=== PATIENT | female | born 1985 | race Caucasian/White ===

== ENCOUNTER 2019-12-21 09:18 | Observation (INO) | payer MEDICAID ==
[~2019-12-21] VITALS: Ht 152.4 cm; Wt 86.2 kg
[2019-12-21 10:12] LABS: CLARITY URINE CLEAR (CLEAR); COLOR URINE YELLOW (YELLOW); KETONES URINE NEGATIVE (NEGATIVE); LEUKOCYTE ESTERASE URINE 2+ (NEGATIVE); NITRITE URINE NEGATIVE (NEGATIVE); OCCULT BLOOD URINE NEGATIVE (NEGATIVE); PROTEIN URINE NEGATIVE (NEGATIVE); SPECIFIC GRAVITY URINE 1.014 (1.005-1.030); UROBILINOGEN URINE 0.2 E.U./dL (0.2-1.0)
[2019-12-21] MEDS ORDERED: LACTATED RINGERS 1,000 ML IV SCH (11:00)
[2019-12-21] MEDS ORDERED: PNV1TABL76 PO (11:36)
[2019-12-21] MEDS ORDERED: CEFAZOLIN 2,000 MG in DEXT 5% WATER 100 ML IV NR (12:00)
== END 2019-12-21 12:05 | disposition home or self-care (01) ==
LOC: 8 EST LDRP 09:18
PROVIDERS: ADMIT Specialist; ATTEND Specialist
DX: O36.8130 Decreased fetal movements, third trimester, not applicable or unspecified (principal); O26.893 Other specified pregnancy related conditions, third trimester; R10.30 Lower abdominal pain, unspecified; Z3A.37 37 weeks gestation of pregnancy
CPT/HCPCS: 76815; 76818; 81003; 87086; 96361; 96365; 99281; G0378; J0690; J7060; 96360; J7120

== ENCOUNTER 2019-12-28 09:03 | Observation (INO) | payer MEDICAID ==
[~2019-12-28 09:03] MED LIST: PNV1TABL76 PO
== END 2019-12-28 10:50 | disposition home or self-care (01) ==
LOC: 8 EST LDRP 09:03
PROVIDERS: ADMIT Specialist; ATTEND Specialist
DX: O62.9 Abnormality of forces of labor, unspecified (principal); Z3A.38 38 weeks gestation of pregnancy
CPT/HCPCS: 59025; 76815; 76818; 99281; G0378

== ENCOUNTER 2020-01-03 13:57 | Inpatient (IN) | payer MEDICAID ==
[~2020-01-03] VITALS: Ht 165.1 cm; Wt 86.2 kg
[2020-01-03] MEDS ORDERED: RHO(D) IMMUNE GLOBULIN 300 MCG/SYR IM ONE (16:30)
[2020-01-03] MEDS ORDERED: NALOXONE HCL 0.4 MG/ML 1ML VIAL IM PRN (16:30)
[2020-01-03] MEDS ORDERED: LIDOCAINE HCL 1% 20ML VIAL (Pyxis) INJ INFIL SCH (16:30)
[2020-01-03 16:47] LABS: CLARITY URINE CLEAR (CLEAR); COLOR URINE YELLOW (YELLOW); KETONES URINE NEGATIVE (NEGATIVE); LEUKOCYTE ESTERASE URINE TRACE (NEGATIVE); NITRITE URINE NEGATIVE (NEGATIVE); OCCULT BLOOD URINE 3+ (NEGATIVE); PH URINE 5.5 (4.5-8.0); PROTEIN URINE NEGATIVE (NEGATIVE); SPECIFIC GRAVITY URINE 1.011 (1.005-1.030); UROBILINOGEN URINE 0.2 E.U./dL (0.2-1.0)
[2020-01-03 16:56] LABS: BASOPHILS % 0.2 % (0.0-2.0); EOSINOPHILS % 0.6 % (0.0-5.0); HEMATOCRIT. 33.3 % (36.0-48.0); HEMOGLOBIN. 11.1 g/dL (12.0-16.0); LYMPHOCYTES % 25.5 % (20.0-50.0); MEAN CORPUSCULAR HEMOGLOBIN 28.8 pg (28.0-32.0); MEAN CORPUSCULAR VOLUME 86.1 fL (81.0-99.0); MEAN PLATELET VOLUME 9.1 fl (7.4-10.4); MONOCYTES % 8.5 % (2.0-8.0); NEUTROPHILS % 65.2 % (40.0-76.0); PLATELET 253 x1000/uL (130-400); RED BLOOD CELL COUNT 3.86 mill/uL (4.2-5.4); RED CELL DISTRIBUTION WIDTH 15.4 % (11.6-14.6)
[2020-01-03 17:02] LABS: INR 0.9; PARTIAL THROMBOPLASTIN TIME 26.2 sec (23.4-31.0); PROTHROMBIN TIME 9.4 sec (9.6-11.0)
[2020-01-03 17:07] LABS: *AMPHETAMINES SCREEN URINE NEGATIVE (NEGATIVE); *BARBITURATES SCREEN URINE NEGATIVE (NEGATIVE); *BENZODIAZEPINES SCREEN URINE NEGATIVE (NEGATIVE); *COCAINE SCREEN URINE NEGATIVE (NEGATIVE); METHADONE URINE SCREEN NEGATIVE (NEGATIVE)
[2020-01-03 17:08] LABS: CANNABINOID URINE SCREEN NEGATIVE (NEGATIVE); OPIATES URINE SCREEN NEGATIVE (NEGATIVE); PHENCYCLIDINE URINE SCREEN NEGATIVE (NEGATIVE)
[2020-01-03] MEDS: LACTATED RINGERS 1,000 ML IV SCH ×2 (17:19→23:03)
[2020-01-03 17:40] LABS: HEPATITIS B SURFACE ANTIGEN NEGATIVE
[2020-01-03] MEDS ORDERED: DINOPROSTONE 10MG VAGINAL INSERT VG NR (18:00)
[2020-01-03 20:54] LABS: CHLORIDE 109 mEq/L (98-107)
[2020-01-03] MEDS: BUTORPHANOL TARTRATE 2 MG/ML VIAL IV PRN (22:59)
[2020-01-04] MEDS: BUTORPHANOL TARTRATE 2 MG/ML VIAL IV PRN (06:08)
[2020-01-04] MEDS: DEXT 5%/LR + PITOCIN 20UNITS/L 1,000 ML IV SCH (07:39)
[2020-01-04] MEDS ORDERED: ROPIVACAINE HCL/PF 0.2% (2MG/ML) EPID 200ML EPI NR (10:00)
[2020-01-04] MEDS ORDERED: FENTANYL CITRATE/PF 50MCG/ML 2ML VIAL ONE ×2 (10:34→19:59)
[2020-01-04] MEDS: LACTATED RINGERS 1,000 ML IV SCH ×2 (12:24→20:45)
[2020-01-04] MEDS ORDERED: BUPIVACAINE HCL/PF 0.25% (2.5MG/ML) 10ML ONE (19:59)
[2020-01-05] MEDS: LACTATED RINGERS 1,000 ML IV SCH (02:00)
[2020-01-05] MEDS ORDERED: BUPIVACAINE HCL/PF 0.25% (2.5MG/ML) 10ML ONE ×2 (02:12→06:44)
[2020-01-05] MEDS ORDERED: FENTANYL CITRATE/PF 50MCG/ML 2ML VIAL ONE ×2 (02:12→06:44)
[2020-01-05] MEDS ORDERED: BUTORPHANOL TARTRATE 2 MG/ML VIAL IV PRN (06:30)
[2020-01-05] MEDS: DEXT 5%/LR + PITOCIN 20UNITS/L 1,000 ML IV SCH (06:36)
[2020-01-05] MEDS ORDERED: NALOXONE HCL 0.4 MG/ML 1ML VIAL IM PRN (06:45)
[2020-01-05] MEDS ORDERED: MINERAL OIL 30ML BOTTLE PO NR (08:48)
[2020-01-05] MEDS ORDERED: DEXT 5%/LR + PITOCIN 20UNITS/L 1,000 ML IV SCH (09:13)
[2020-01-05] MEDS ORDERED: BISACODYL 10MG SUPP PR PRN (09:15)
[2020-01-05] MEDS ORDERED: ACETAMINOPHEN WITH CODEINE 300/30MG TABLET PO PRN (09:15)
[2020-01-05] MEDS ORDERED: GLYCERIN/WITCH HAZEL LEAF MEDICATED PAD TOP PRN (09:15)
[2020-01-05] MEDS ORDERED: LANOLIN OINT 7GM TUBE TOP PRN (09:15)
[2020-01-05] MEDS ORDERED: DIPHENHYDRAMINE 25MG CAPSULE PO PRN (09:15)
[2020-01-05] MEDS ORDERED: IBUPROFEN 400MG TABLET PO PRN (09:15)
[2020-01-05] MEDS ORDERED: HEMORRHOIDAL SUPP PR PRN (09:15)
[2020-01-05] MEDS: IBUPROFEN 800MG TABLET PO PRN (12:49)
[2020-01-05] MEDS ORDERED: PRAMOXINE HCL 1% FOAM PR SCH (13:00)
[2020-01-05 13:15] VITALS: BP 116/71
[2020-01-05 13:45] VITALS: BP 122/60
[2020-01-05] MEDS: BENZOCAINE/LANOLIN/ALOE VERA SPRAY TOP PRN ×2 (17:16→22:14)
[2020-01-05 19:30] VITALS: BP 124/53
[2020-01-05] MEDS ORDERED: DOCUSATE SODIUM 100MG CAPSULE PO SCH (21:00)
[2020-01-06] VITALS: BP 119/69
[2020-01-06 04:00] VITALS: BP 125/83
[2020-01-06] MEDS: IBUPROFEN 800MG TABLET PO PRN ×2 (04:41→13:03)
[2020-01-06 06:12] LABS: BASOPHILS % 0.2 % (0.0-2.0); EOSINOPHILS % 1.2 % (0.0-5.0); HEMOGLOBIN. 9.3 g/dL (12.0-16.0); LYMPHOCYTES % 12.3 % (20.0-50.0); MEAN CORPUSCULAR HEMOGLOBIN 28.7 pg (28.0-32.0); MEAN CORPUSCULAR VOLUME 86.7 fL (81.0-99.0); MONOCYTES % 6.3 % (2.0-8.0); PLATELET 203 x1000/uL (130-400); RED BLOOD CELL COUNT 3.23 mill/uL (4.2-5.4); RED CELL DISTRIBUTION WIDTH 15.4 % (11.6-14.6)
[2020-01-06 07:31] VITALS: BP 112/73
[2020-01-06] MEDS ORDERED: TETANUS, DIPHTHERIA, PERTUSSIS VAC/PF 0.5ML (>7YR OLD) IM ONE (08:00)
[2020-01-06] MEDS ORDERED: PRENATAL VIT/FE FUMARATE/FA TABLET PO SCH (09:00)
[2020-01-06] MEDS: FERROUS SULFATE 325MG TABLET PO SCH ×2 (09:08→13:03)
== END 2020-01-06 14:45 | disposition home or self-care (01) | DRG 560 ==
LOC: 8 EST LDRP 13:57 → OBSVTOIN 13:57 → 8 EST LDRP 14:19 → 8EST 01-05 13:08
PROVIDERS: ADMIT Specialist; ATTEND Specialist
PROC: 10E0XZZ Delivery of Products of Conception, External Approach (ICD-10-PCS; principal; 2020-01-05)
PROC: 0W8NXZZ Division of Female Perineum, External Approach (ICD-10-PCS; 2020-01-05)
PROC: 3E0R3BZ Introduction of Anesthetic Agent into Spinal Canal, Percutaneous Approach (ICD-10-PCS; 2020-01-05)
PROC: 00HU33Z Insertion of Infusion Device into Spinal Canal, Percutaneous Approach (ICD-10-PCS; 2020-01-05)
DX: O24.429 Gestational diabetes mellitus in childbirth, unspecified control (principal); O99.214 Obesity complicating childbirth; O69.81X0 Labor and delivery complicated by cord around neck, without compression, not applicable or unspecified; E66.9 Obesity, unspecified; Z3A.39 39 weeks gestation of pregnancy; Z37.0 Single live birth; O10.92 Unspecified pre-existing hypertension complicating childbirth
CPT/HCPCS: 36415; 80053; 80305; 81003; 84550; 85025; 86592; 86703; 86762; 86850; 86900; 87340; 90715; 99281; J0595; J2310; J2590; J2795; J3010; J3490